=== PATIENT | female | born 1985 | race Caucasian/White ===

== ENCOUNTER 2024-02-10 20:31 | Emergency (ER) | payer MEDICAID, SELFPAY ==
--- NOTE | 2024-02-10 20:36 | PC.NURSE ---
Pt walked out during triage.
== END 2024-02-10 20:38 | disposition left against medical advice (07) ==
LOC: SERX 20:44
PROVIDERS: Emergency Provider Emergency Medicine
DX: Z53.21 Procedure and treatment not carried out due to patient leaving prior to being seen by health care provider (principal)

== ENCOUNTER 2024-03-05 15:43 | Emergency (ER) | payer MEDICAID, SELFPAY ==
--- NOTE | 2024-03-05 17:02 | PC.NURSE ---
NA X1 CALLED FOR PT IN LOBBY AND OUTSIDE
--- NOTE | 2024-03-05 17:41 | PC.NURSE ---
CALLED 3 TIMES, NO ANSWER; ELOPED.
== END 2024-03-05 17:41 | disposition left against medical advice (07) ==
LOC: SERX 15:55
PROVIDERS: Emergency Provider Emergency Medicine; PCP Family Medicine
DX: Z53.21 Procedure and treatment not carried out due to patient leaving prior to being seen by health care provider (principal)

== ENCOUNTER 2024-03-11 14:40 | Emergency (ER) | payer MEDICAID, SELFPAY ==
[2024-03-11 14:56] VITALS: PULSE 112; O2SAT 99; BMI 21.1
[2024-03-11 15:19] VITALS: BP 138/100; PULSE 101; RESP 16; TEMP 36.7; O2SAT 100; BMI 21.8
--- NOTE | 2024-03-11 15:20 | XR_ITS ---
Examination: PA lateral chest 2 views TECHNIQUE: Upright PA lateral chest 2 views Exam date and time: March 11, 2024 at 1612 hours Comparison March 05, 2024 INDICATIONS: History chest pain pneumonia FINDINGS: There remains mild obscuration detail midportion left hemidiaphragm This may represent scar formation versus mild residual pneumonia, clinical correlation advised Prominent lumbar dextroscoliosis Normal heart size IMPRESSION: There remains scar formation versus mild pneumonia left base, the appearance should be clinically correlated
--- NOTE | 2024-03-11 15:20 | EKG_ITS ---
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
--- NOTE | 2024-03-11 15:20 | PD.EDRME ---
Rapid Medical Screening Exam RME Arrival date/time: 03/11/24 14:40 38-year-old female presents emergency department complaints of rapid heartbeat patient reports last used methamphetamine 2 days ago Chief Complaint: Chest Pain Time Seen by Provider: 03/11/24 15:03
[2024-03-11 16:21] LABS: Basophils # (Auto) 0.1 Thou/mm3 (0.0-0.2); Basophils % (Auto) 1 % (0-2.5); Eosinophils # (Auto) 0.1 Thou/mm3 (0.0-0.5); Eosinophils % (Auto) 1 % (0-10); Hematocrit 41.5 % (36.0-46.0); Hemoglobin 14.9 g/dL (12.0-16.0); Immature Granulocytes % (Auto) 1 % (0-0); Immature Granulocytes Auto 0.07 Thou/mm3 (0.00-0.00); Lymphocytes # (Auto) 3.6 Thou/mm3 (1.0-4.8); Lymphocytes % (Auto) 30 % (10-50); Mean Corpuscular HGB Conc 35.9 g/dl (31.0-37.0); Mean Corpuscular Hemoglobin 30.8 pg (25.0-35.0); Mean Corpuscular Volume 86 fL (80-100); Monocytes # (Auto) 1.1 Thou/mm3 (0.0-0.8); Monocytes % (Auto) 9 % (0-12); Neutrophils % (Auto) 59 % (37-80); Nucleated Red Blood Cell % 0 /100 WBC (0); Platelet Count 331 Thou/mm3 (140-440); RDW Standard Deviation 38.5 fL (36.4-46.3); Red Blood Count 4.83 Miln/mm3 (4.00-5.20); White Blood Count 11.8 Thou/mm3 (3.6-11.0)
[2024-03-11 17:11] LABS: Alanine Aminotransferase 17 U/L (10-49); Albumin, Serum 4.7 gm/dL (3.5-5.0); Albumin/Globulin Ratio 1.6 (1.2-2.2); Alkaline Phosphatase 84 U/L (46-116); Anion Gap 5 (7-16); Aspartate Amino Transferase 23 U/L (0-34); BUN/Creatinine Ratio 6 Ratio (12-20); Bilirubin,Total 1.2 mg/dL (0.3-1.2); Blood Urea Nitrogen 5 mg/dL (9-23); Calcium 10.3 mg/dL (8.3-10.6); Calcium (Corrected) 10.3 mg/dL (8.5-10.1); Carbon Dioxide 27.3 mMol/L (20.0-31.0); Chloride 100 mMol/L (98-107); Creatinine (Component) 0.9 mg/dL (0.6-1.3); Estimated Creatinine Clearance 71.8 mL/min (>60); Glucose 103 mg/dL (74-106); Osmolality,Calculated 261 (275-295); Potassium 3.8 mMol/L (3.4-5.1); Sodium 132 mMol/L (136-145); Total Protein 7.7 gm/dL (5.7-8.2); Troponin I < 0.020 ng/mL (0.0-0.045); eGFR > 60 See Note
== END 2024-03-11 18:14 | disposition left against medical advice (07) ==
PROVIDERS: Nurse Practitioner Primary Care; Emergency Provider Emergency Medicine; PCP Family Medicine
DX: R07.9 Chest pain, unspecified (principal); R94.31 Abnormal electrocardiogram [ECG] [EKG]
CPT/HCPCS: 36415; 71046; 80053; 80307; 81025; 84484; 85025; 93005; 99281

== ENCOUNTER 2024-03-12 16:48 | Emergency (ER) | payer MEDICAID, SELFPAY ==
--- NOTE | 2024-03-12 16:52 | EKG_ITS ---
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
[2024-03-12 16:55] VITALS: BP 113/74; PULSE 90; RESP 16; TEMP 36.8; O2SAT 100; BMI 21.1
--- NOTE | 2024-03-12 17:05 | XR_ITS ---
Examination: PA lateral chest 2 views TECHNIQUE: Upright PA lateral chest 2 views Exam date and time: March 12, 2024 1712 hours INDICATIONS: Onset chest pain today FINDINGS: Normal heart size No pneumonia or pulmonary edema Pectus deformity IMPRESSION: No pneumonia or pulmonary edema
--- NOTE | 2024-03-12 17:05 | PD.EDRME ---
Rapid Medical Screening Exam RME Arrival date/time: 03/12/24 16:48 38-year-old female presents emergency department complains of chest pain patient evaluated yesterday for similar symptoms Chief Complaint: General Adult/Misc Complain Vital signs: Vital Signs Temperature 98.3 F 03/12/24 16:55 Pulse Rate 90 03/12/24 16:55 Respiratory Rate 16 03/12/24 16:55 Blood Pressure 113/74 03/12/24 16:55 Pulse Oximetry (%) 100 03/12/24 16:55 Oxygen Delivery Method Room Air 03/12/24 16:55
[2024-03-12 17:15] LABS: Basophils # (Auto) 0.1 Thou/mm3 (0.0-0.2); Basophils % (Auto) 1 % (0-2.5); Eosinophils # (Auto) 0.2 Thou/mm3 (0.0-0.5); Eosinophils % (Auto) 2 % (0-10); Hematocrit 39.7 % (36.0-46.0); Hemoglobin 13.8 g/dL (12.0-16.0); Immature Granulocytes % (Auto) 0 % (0-0); Immature Granulocytes Auto 0.03 Thou/mm3 (0.00-0.00); Lymphocytes # (Auto) 3.3 Thou/mm3 (1.0-4.8); Lymphocytes % (Auto) 37 % (10-50); Mean Corpuscular HGB Conc 34.8 g/dl (31.0-37.0); Mean Corpuscular Hemoglobin 30.7 pg (25.0-35.0); Mean Corpuscular Volume 88 fL (80-100); Monocytes # (Auto) 0.7 Thou/mm3 (0.0-0.8); Monocytes % (Auto) 8 % (0-12); Neutrophils # (Auto) 4.5 Thou/mm3 (1.8-7.7); Neutrophils % (Auto) 51 % (37-80); Nucleated Red Blood Cell % 0 /100 WBC (0); Platelet Count 292 Thou/mm3 (140-440); White Blood Count 8.8 Thou/mm3 (3.6-11.0)
[2024-03-12 17:35] LABS: Alanine Aminotransferase 23 U/L (10-49); Albumin, Serum 4.2 gm/dL (3.5-5.0); Albumin/Globulin Ratio 1.6 (1.2-2.2); Alkaline Phosphatase 72 U/L (46-116); Anion Gap 3 (7-16); Aspartate Amino Transferase 22 U/L (0-34); BUN/Creatinine Ratio 11 Ratio (12-20); Bilirubin,Total 0.5 mg/dL (0.3-1.2); Blood Urea Nitrogen 13 mg/dL (9-23); Calcium 9.3 mg/dL (8.3-10.6); Calcium (Corrected) 9.3 mg/dL (8.5-10.1); Carbon Dioxide 28.5 mMol/L (20.0-31.0); Chloride 105 mMol/L (98-107); Creatinine (Component) 1.2 mg/dL (0.6-1.3); Estimated Creatinine Clearance 56.1 mL/min (>60); Globulin 2.6 gm/dL (2.3-3.5); Glucose 97 mg/dL (74-106); Osmolality,Calculated 272 (275-295); Potassium 4.3 mMol/L (3.4-5.1); Sodium 136 mMol/L (136-145); Total Protein 6.8 gm/dL (5.7-8.2); Troponin I < 0.002 ng/mL (0.0-0.045); eGFR 59 See Note
--- NOTE | 2024-03-12 21:19 | PC.NURSE ---
called pt in er lobby and outside of er and no answer at this time.
--- NOTE | 2024-03-12 21:35 | PC.NURSE ---
NO ANSWER FOR VITALS
--- NOTE | 2024-03-12 21:50 | PC.NURSE ---
NO ANSWER FOR MAIN ED
== END 2024-03-12 21:50 | disposition left against medical advice (07) ==
PROVIDERS: Nurse Practitioner Primary Care; Emergency Provider Emergency Medicine; PCP Family Medicine
DX: R07.9 Chest pain, unspecified (principal); Z53.29 Procedure and treatment not carried out because of patient's decision for other reasons
CPT/HCPCS: 36415; 71046; 80053; 84484; 85025; 93005; 99281

== ENCOUNTER 2024-03-16 00:29 | Emergency (ER) | payer MEDICAID, SELFPAY ==
--- NOTE | 2024-03-16 00:46 | PC.NURSE ---
PT WALKED OUT OF AMBULANCE BAY WAS NOT SEEN BY PROVIDER.
--- NOTE | 2024-03-16 13:08 | PC.CC ---
Pt Elayne Garcia is a 38 yr old female to ED for voluntary crisis evaluation. Pt requesting to be put on mental health medications and to be placed in LPS facility. ASW met with pt in old triage in ED. ASW introduced self and role in pt care. Pt noted to be agreeable to meet with ASW at this time. Pt presents dressed appropriately for weather. Pt speaks in clear even tone, keeps direct eye contact is able to respond appropriately to all assessment questions at this time. Pt presents with normal affect, does not appear to be responding to internal/external stimuli. At this time pt is denying SI/HI, A/VH. Pt noted to be independent with ambulation. Pt reports coming to the ED, to request mental health medications and would like to be placed in LPS facility. Pt reports hx of schizophrenia, reporting being dx 10+ yrs ago. Pt states not currently being engaged in traditional MH services. Pt reports she has not accessed mental health services in a very long time. ASW assessed why pt feels she needs to be placed in LPS setting, pt reports it is because she is homeless. Pt reports she feels someone is after her. ASW assessed if pt feels safe, and if anyone has caused harm to pt. Pt denied both, feeling unsafe and that no one has caused her harm. Pt reports that up until 2 months ago she lived with her boyfriend. Pt reports that since the relationship has ended, she has been homeless. Pt reports the use of methamphetamine, reports last use a few days ago. Pt informed that case would be consulted and pt provided with outcome. Pt agreeable. 1132-Case staffed with LIGHTOUT EXAMINER, Nikki Willis. Pt to be cleared with resources to support pts desire to access traditional MH services. ASW attempted to follow up with pt, pt eloped from ED prior to being D/c. ED security and shirt cleaner informed to advise ASW if pt returned to ED.
== END 2024-03-16 00:48 | disposition left against medical advice (07) ==
LOC: SERX 00:55
PROVIDERS: Emergency Provider Emergency Medicine
DX: Z53.21 Procedure and treatment not carried out due to patient leaving prior to being seen by health care provider (principal)

== ENCOUNTER 2024-03-16 07:59 | Emergency (ER) | payer MEDICAID, SELFPAY ==
[2024-03-16 08:32] VITALS: BP 149/84; PULSE 100; RESP 19; TEMP 36.6; O2SAT 99; BMI 20.9
--- NOTE | 2024-03-16 08:36 | PD.EDRME ---
Rapid Medical Screening Exam RME Arrival date/time: 03/16/24 07:59 38-year-old female history of methamphetamine use, psychosis, anxiety depression here in the emergency department today requesting to speak to mental health vessel slag worker. Denies suicidal homicidal ideation. I have greeted and performed a focused initial assessment of this patient. Initial appropriate labs ordered at this time. A comprehensive ED assessment and evaluation of the patient and analysis of all test and completion of medical decision making process will be conducted by additional ED provider. Chief Complaint: General Adult/Misc Complain Time Seen by Provider: 03/16/24 08:26
[2024-03-16 09:15] LABS: Alcohol, Blood Medical < 10.0 mg/dL (0-10.0)
[2024-03-16 09:37] LABS: HCG Qualitative,Urine Negative
[2024-03-16 09:49] LABS: Amphetamine/Methamp Scrn,U Positive (Negative); Barbiturate Screen,Urine Negative (Negative); Benzodiazepines Screen,Urine Negative (Negative); Benzoylecgonine Screen, Ur Negative (Negative); Fentanyl Screen,Urine Negative (Negative); Opiate Screen,Urine Negative (Negative); THC Screen,Urine Negative (Negative)
--- NOTE | 2024-03-16 11:45 | PC.NURSE ---
PT AL FROM DIRECTOR OF SAFETY AND SECURITY, PT CLEARED FOR DISCHARGE
--- NOTE | 2024-03-16 11:57 | PC.NURSE ---
CALLED PT FROM LOBBY AND NO ANSWER. SECURITY STATES SHE WALKED AWAY.
== END 2024-03-16 11:59 | disposition left against medical advice (07) ==
LOC: SERX 08:44
PROVIDERS: Nurse Practitioner Primary Care; Emergency Provider Emergency Medicine; PCP Family Medicine
DX: Z00.8 Encounter for other general examination (principal); Z53.29 Procedure and treatment not carried out because of patient's decision for other reasons
CPT/HCPCS: 36415; 80307; 80320; 81025; 99281; G0480

== ENCOUNTER 2024-03-18 03:43 | Emergency (ER) | payer MEDICAID, SELFPAY ==
[2024-03-18 03:50] VITALS: PULSE 88; RESP 20; BMI 21.1
[2024-03-18 03:53] VITALS: BP 116/70; PULSE 77; RESP 19; TEMP 36.6; O2SAT 98
--- NOTE | 2024-03-18 04:10 | PD.EDANX ---
ED Anxiety RME/HPI General Chief Complaint: Anxiety Stated Complaint: ANXIETY Time Seen by Provider: 03/18/24 04:10 Source: patient Arrival date/time: 03/18/24 03:43 38-year-old female with past medical history recreational drug abuse presents emergency department reporting she has been losing weight and does not have appetite as she normally does. Patient denies any fever, chills, cough, shortness of breath, chest pain, nausea vomiting, diarrhea, or any other associated symptoms. Mode of arrival: ambulatory Limitations: no limitations Related Data Home Medications ?Medication ?Instructions ?Recorded ?Confirmed albuterol sulfate 90 mcg/actuation 2 puff inhalation Q6H PRN 08/20/18 aerosol inhaler shortness of breath or wheezing fluoxetine 40 mg capsule 40 mg PO QDAY 08/20/18 risperidone 2 mg tablet 2 mg PO BID 08/20/18 trazodone 50 mg tablet 50 mg PO QHS PRN 08/20/18 Previous Rx's ?Medication ?Instructions ?Recorded risperidone 1 mg tablet (Risperdal) 1 mg PO QDAY #14 tabs 07/25/23 fluoxetine 40 mg capsule 40 mg PO QAM #7 caps 10/19/23 risperidone 1 mg tablet (Risperdal) 1 mg PO QDAY #7 tabs 10/19/23 trazodone 50 mg tablet 50 mg PO QDAY #7 tabs 10/19/23 fluticasone propionate 50 1 spray intranasal Q12H PRN nasal 11/19/23 mcg/actuation nasal congestion #16 grams spray,suspension (Flonase Allergy Relief) prednisone 50 mg tablet 50 mg PO QDAY #5 tabs 03/02/24 azithromycin 250 mg tablet See Rx Instructions PO .COMPLEX #6 03/05/24 tabs Allergies Allergy/AdvReac Type Severity Reaction Status Date / Time No Known Allergies Allergy Verified 03/12/24 16:52 Review of Systems Review of Systems Systems Reviewed: All systems reviewed, normal except as documented Constitutional Constitutional: Reports system reviewed and no additional complaints, except as documented, Denies body ache(s), Denies chills, Denies fever(s) and Reports poor appetite Eyes Eyes: Reports system reviewed and no additional complaints, except as documented and Denies change in vision ENT Ears, Nose, Mouth, and Throat: Reports system reviewed and no additional complaints, except as documented, Denies disequilibrium, Denies dizziness, Denies sore throat and Denies vertigo Cardiovascular Cardiovascular: Reports system reviewed and no additional complaints, except as documented, Denies chest pain and Denies dyspnea Respiratory Respiratory: Reports system reviewed and no additional complaints, except as documented, Denies chest congestion, Denies cough and Denies dyspnea Gastrointestinal Gastrointestinal: Reports system reviewed and no additional complaints, except as documented, Denies abdominal pain, Denies nausea and Denies vomiting Musculoskeletal Musculoskeletal: Reports system reviewed and no additional complaints, except as documented, Denies abnormal gait and Denies arthralgias Integumentary/Breasts Skin/Breast: Reports system reviewed and no additional complaints, except as documented, Denies erythema, Denies rash and Denies wounds Neurologic Neurologic: Reports system reviewed and no additional complaints, except as documented, Denies abnormal gait, Denies disequilibrium, Denies dizziness and Denies vertigo Past Medical History Past Medical History CARDIAC: Negative Congestive Heart Failure RESPIRATORY: Negative Chronic Obstructive Pulmonary Disease (COPD) GENITOURINARY: Negative Renal Disease ENDOCRINE: Negative Diabetes Mellitus Type 1 or Diabetes Mellitus Type 2 PSYCHO/SOCIAL: Positive Psychiatric Problems, Schizophrenia and Depression Social History SMOKING STATUS: Current every day smoker ED Exam General Limitations: Present no limitations General appearance: Present alert and in no apparent distress Head Head exam: Present atraumatic Eye Eye exam: Present normal appearance, PERRL and EOMI ENT ENT exam: Present normal exam, normal oropharynx and mucous membranes moist Neck Neck exam: Present normal inspection, full ROM and trachea midline Chest Chest inspection: Present normal inspection and symmetric chest wall rise Respiratory Respiratory exam: Present normal lung sounds bilaterally Cardiovascular Cardiovascular exam: Present regular rate, normal rhythm and normal heart sounds Abdominal Exam Abdominal exam: Present soft and normal bowel sounds Extremities Exam Extremities exam: Present normal inspection and full ROM Back Exam Back exam: Present normal inspection and full ROM Neurological Exam Neurological exam: Present alert, oriented X3 and CN II-XII intact Psychiatric Psychiatric exam: Present normal affect and anxious; Absent homicidal ideation or suicidal ideation Skin Skin exam: Present warm, dry, intact and normal color Course Quality Measures none Vital Signs Vital signs: Vital Signs Temperature 98 F 03/18/24 03:53 Pulse Rate 77 03/18/24 03:53 Respiratory Rate 19 03/18/24 03:53 Blood Pressure 116/70 03/18/24 03:53 Pulse Oximetry (%) 98 03/18/24 03:53 Oxygen Delivery Method Room Air 03/18/24 03:53 98% room air within normal limits Anxiety MDM Narrative MDM Narrative: 38-year-old female with past medical history recreational drug abuse presents emergency department reporting she has been losing weight and does not have appetite as she normally does. Patient denies any fever, chills, cough, shortness of breath, chest pain, nausea vomiting, diarrhea, or any other associated symptoms. Patient appears nontoxic and hemodynamically stable. Patient GCS of 15 with steady gait and answering questions appropriately. Family member at bedside. Patient reports daily use of methamphetamines. Patient reports attempting to quit. Patient given pamphlet with list of resources for mental health, shelters, and transportation. Patient's clothing adequate for weather and given meal before discharge Patient discharged to follow-up with primary care provider in 24 to 48 hours and return to emergency department for any worsening symptoms or as needed. Patient data External records reviewed:: [facility] previous records Clinical information provided by:: patient Social determinants that could affect healthcare access:: substance use Patient has the following chronic illnesses:: See chart How is presenting disease/condition affected by chronic disease/condition?: exacerbated by Evaluation data The following diagnostics were reviewed and interpreted by me:: other (specify) (N/A) Lab and/or radiology exams considered but not ordered:: N/A Interpretation Summary: N/A Medications / Prescriptions Medications or Prescriptions considered but not ordered:: N/A Medication administrations:: N/A Consultations Consultation(s) initiated? (list below): No Diagnosis Differential diagnosis anxiety: panic disorder, acute anxiety and other (Methamphetamine use) Most likely diagnosis given after review of the tests above:: Methamphetamine use History of recreational drug abuse Admission Indicated Admission indicated?: not indicated Admission Request Was there a request for admission?: No Disposition Plan Disposition Plan: Discharge Discharge Attestation Discharge Attestation: The patient and all family members were given an opportunity to ask questions and understood the discharge instructions. Discharge instructions specifically effects, indications for sooner follow up or return to the emergency department, and the expected course of current diagnosis. Patient condition: Stable Discharge Plan Plan Patient Disposition: HOME (Self Care) Disposition Comment: Stable Prescriptions/Referrals Prescriptions/Med Rec: No Action albuterol sulfate 90 mcg/actuation HFA aerosol inhaler 2 puff INH Q6H PRN (Reason: shortness of breath or wheezing) fluoxetine 40 mg capsule 40 mg PO QDAY risperidone 2 mg tablet 2 mg PO BID trazodone 50 mg tablet 50 mg PO QHS PRN risperidone [Risperdal] 1 mg tablet 1 mg PO QDAY Qty: 14 0RF fluoxetine 40 mg capsule 40 mg PO QAM Qty: 7 0RF trazodone 50 mg tablet 50 mg PO QDAY Qty: 7 0RF risperidone [Risperdal] 1 mg tablet 1 mg PO QDAY Qty: 7 0RF prednisone 50 mg tablet 50 mg PO QDAY Qty: 5 0RF azithromycin 250 mg tablet See Rx Instructions PO .COMPLEX Qty: 6 0RF Rx Instructions: For 250 mg dose pack: take 500 mg today (day 1), then 250 mg for 4 days (days 2-5) fluticasone propionate [Flonase Allergy Relief] 50 mcg/actuation spray,suspension 1 spray intranasal Q12H PRN (Reason: nasal congestion) Qty: 16 0RF Rx Instructions: administer into each nostril Problem List Clinical Impression: History of abuse of recreational drug, Methamphetamine dependence Patient/Caregiver Discharge Instructions Education Materials: Addiction Ask These Questions, Recovering from Addiction, ED Drug Abuse Additional Instructions: Stop using methamphetamine and use resources that were provided on the pamphlet. Follow-up with primary care provider in 24 to 48 hours. Return to the emergency department for any worsening symptoms or as needed. Print Language: Maori Stand Alone Forms: Elenita Award Info., Patient Portal Info Letter PA/ENA Supervising Physician PA/ENA Supervising Physician: Dr. Chowdhury
== END 2024-03-18 04:28 | disposition home or self-care (01) ==
PROVIDERS: Emergency Provider Emergency Medicine; PCP Family Medicine
DX: F15.20 Other stimulant dependence, uncomplicated (principal)
CPT/HCPCS: 99283

== ENCOUNTER 2024-03-18 08:45 | Emergency (ER) | payer MEDICAID, SELFPAY ==
[2024-03-18 08:45] VITALS: BMI 21.9
[2024-03-18 08:53] VITALS: BP 136/82; PULSE 96; RESP 16; TEMP 36.9; O2SAT 98; BMI 20.3
--- NOTE | 2024-03-18 09:08 | PC.NURSE ---
0855 Unable to located where the patient went. Provider Rony came to talk with patient but patient was no longer in the room. Will attempt to call the patient 2 more times.
--- NOTE | 2024-03-18 09:11 | PC.NURSE ---
0910 Patient called from the front of the ER and the lobby for a second time, no answer x2.
--- NOTE | 2024-03-18 09:35 | PC.NURSE ---
Patent no where to be found in the ER, patient eloped.
--- NOTE | 2024-03-18 09:35 | PC.NURSE ---
0935 Patient called from the front of the ER and the lobby for a third time with no response. Security stated they saw the patient leave walking towards the MRI building.
== END 2024-03-18 09:35 | disposition left against medical advice (07) ==
PROVIDERS: Emergency Provider Emergency Medicine
DX: Z53.21 Procedure and treatment not carried out due to patient leaving prior to being seen by health care provider (principal)
CPT/HCPCS: 99281

== ENCOUNTER 2024-03-22 00:08 | Emergency (ER) | payer MEDICAID, SELFPAY ==
[2024-03-22 00:09] VITALS: BMI 23.6
[2024-03-22 00:14] VITALS: BP 150/77; PULSE 114; RESP 19; TEMP 36.9; O2SAT 96
--- NOTE | 2024-03-22 00:26 | PD.EDRME ---
Rapid Medical Screening Exam RME Arrival date/time: 03/22/24 00:08 38F with history of psych/drug presents to ED wanting to talk to crisis. Patient denies SI/HI. Chief Complaint: Psychiatric Symptoms Vital signs: Vital Signs Temperature 98.4 F 03/22/24 00:14 Pulse Rate 114 H 03/22/24 00:14 Respiratory Rate 19 03/22/24 00:14 Blood Pressure 150/77 H 03/22/24 00:14 Pulse Oximetry (%) 96 03/22/24 00:14 Oxygen Delivery Method Room Air 03/22/24 00:14
--- NOTE | 2024-03-22 00:51 | PD.EDPSYCH ---
ED Psych RME/HPI General Chief Complaint: Psychiatric Symptoms Stated Complaint: WANTS TO TALK TO MH Time Seen by Provider: 03/22/24 00:33 Arrival date/time: 03/22/24 00:08 RME / HPI RME / HPI Narrative: 03/22/24 00:08 38F with history of psych/drug presents to ED wanting to talk to crisis. Patient denies SI/HI. ------ This section includes all my notes and documentations, including HPI, PE, and ED course. Melvin Carbajal MD HPI: 38yo female with a history of schizophrenia, methamphetamine abuse presents to the ED requesting to speak with mental health. Patient states she has not had a place to stay for the last 6 months. She states she used to be on rispiradone and haldol, but has not taken her medications in months . She denies any SI, HI, or hallucinations. No other complaints reported. ROS: Respiratory: negative except as documented in HPI. Gastrointestinal: negative except as documented in HPI. Genitourinary: negative except as documented in HPI. Musculoskeletal: negative except as documented in HPI. Skin: negative except as documented in HPI. Neurological: negative except as documented in HPI. Physical Exam: General: Alert and oriented. No acute distress. Eyes: Conjunctivae and lids clear. ENT: No nasal congestion. Neck: Supple. Lungs: No respiratory distress. Skin: Warm and dry. Neuro: Alert and oriented X 3. I ordered diagnostic tests. I was told the patient eloped. Related Data Home Medications ?Medication ?Instructions ?Recorded ?Confirmed albuterol sulfate 90 mcg/actuation 2 puff inhalation Q6H PRN 08/20/18 aerosol inhaler shortness of breath or wheezing fluoxetine 40 mg capsule 40 mg PO QDAY 08/20/18 risperidone 2 mg tablet 2 mg PO BID 08/20/18 trazodone 50 mg tablet 50 mg PO QHS PRN 08/20/18 Previous Rx's ?Medication ?Instructions ?Recorded risperidone 1 mg tablet (Risperdal) 1 mg PO QDAY #14 tabs 07/25/23 fluoxetine 40 mg capsule 40 mg PO QAM #7 caps 10/19/23 risperidone 1 mg tablet (Risperdal) 1 mg PO QDAY #7 tabs 10/19/23 trazodone 50 mg tablet 50 mg PO QDAY #7 tabs 10/19/23 fluticasone propionate 50 1 spray intranasal Q12H PRN nasal 11/19/23 mcg/actuation nasal congestion #16 grams spray,suspension (Flonase Allergy Relief) prednisone 50 mg tablet 50 mg PO QDAY #5 tabs 03/02/24 azithromycin 250 mg tablet See Rx Instructions PO .COMPLEX #6 03/05/24 tabs Allergies Allergy/AdvReac Type Severity Reaction Status Date / Time No Known Allergies Allergy Verified 03/18/24 08:47 Review of Systems Review of Systems Systems Reviewed: All systems reviewed, normal except as documented Past Medical History Past Medical History CARDIAC: Negative Congestive Heart Failure RESPIRATORY: Negative Chronic Obstructive Pulmonary Disease (COPD) GENITOURINARY: Negative Renal Disease ENDOCRINE: Negative Diabetes Mellitus Type 1 or Diabetes Mellitus Type 2 PSYCHO/SOCIAL: Positive Psychiatric Problems, Schizophrenia and Depression Social History SMOKING STATUS: Current every day smoker ED Exam Narrative Physical exam: As noted in HPI. Course Quality Measures none Orders Category Date Time Status Acetaminophen Stat Lab 03/22/24 00:53 Ordered Alcohol, Blood Medical Stat Lab 03/22/24 00:53 Ordered CBC Stat Lab 03/22/24 00:54 Ordered CMP [Comprehensive Metabolic Panel] Stat Lab 03/22/24 00:53 Ordered Drug Screen,Urine Stat Lab 03/22/24 00:54 Ordered HCG Qualitative,Urine Stat Lab 03/22/24 00:54 Ordered Magnesium Stat Lab 03/22/24 00:53 Ordered Salicylate Stat Lab 03/22/24 00:53 Ordered UA [Urinalysis] Stat Lab 03/22/24 00:54 Ordered Vital Signs Vital signs: Vital Signs Temperature 98.4 F 03/22/24 00:14 Pulse Rate 114 H 03/22/24 00:14 Respiratory Rate 19 03/22/24 00:14 Blood Pressure 150/77 H 03/22/24 00:14 Pulse Oximetry (%) 96 03/22/24 00:14 Oxygen Delivery Method Room Air 03/22/24 00:14 Psych Patient data External records reviewed:: [facility] previous records (Per chart review, patient was seen here on 03/18/24 due to not eating.) Clinical information provided by:: patient Social determinants that could affect healthcare access:: mental health Patient has the following chronic illnesses:: schizophrenia, methamphetamine abuse How is presenting disease/condition affected by chronic disease/condition?: caused by Evaluation data The following diagnostics were reviewed and interpreted by me:: other (specify) (none) Lab and/or radiology exams considered but not ordered:: none Interpretation Summary: Labs were ordered, but the patient eloped prior to labs being drawn. Medications / Prescriptions Medications or Prescriptions considered but not ordered:: none Medication administrations:: none Consultations Consultation(s) initiated? (list below): No Diagnosis Psych Differential Diagnosis: acute psychosis, chronic schizophrenia and drug-induced psychotic disorder Most likely diagnosis given after review of the tests above:: see below Admission Indicated Admission indicated?: not indicated Admission Request Was there a request for admission?: No Disposition Plan Disposition Plan: other (specify) (Patient eloped.) Discharge Plan Plan Patient Disposition: Elopement Prescriptions/Referrals Prescriptions/Med Rec: No Action albuterol sulfate 90 mcg/actuation HFA aerosol inhaler 2 puff INH Q6H PRN (Reason: shortness of breath or wheezing) fluoxetine 40 mg capsule 40 mg PO QDAY risperidone 2 mg tablet 2 mg PO BID trazodone 50 mg tablet 50 mg PO QHS PRN risperidone [Risperdal] 1 mg tablet 1 mg PO QDAY Qty: 14 0RF fluoxetine 40 mg capsule 40 mg PO QAM Qty: 7 0RF trazodone 50 mg tablet 50 mg PO QDAY Qty: 7 0RF risperidone [Risperdal] 1 mg tablet 1 mg PO QDAY Qty: 7 0RF prednisone 50 mg tablet 50 mg PO QDAY Qty: 5 0RF azithromycin 250 mg tablet See Rx Instructions PO .COMPLEX Qty: 6 0RF Rx Instructions: For 250 mg dose pack: take 500 mg today (day 1), then 250 mg for 4 days (days 2-5) fluticasone propionate [Flonase Allergy Relief] 50 mcg/actuation spray,suspension 1 spray intranasal Q12H PRN (Reason: nasal congestion) Qty: 16 0RF Rx Instructions: administer into each nostril Problem List Clinical Impression: Homeless Patient/Caregiver Discharge Instructions Print Language: Bulgarian
--- NOTE | 2024-03-22 01:02 | PC.NURSE ---
PT DENIES SI/HI, STATES THAT SHE FEELS LIKE SHE IS DYING. PT STATES SHE IS HOMELESS. PT ON PREVIOUS VISIT WAS GIVEN MULTIPLE RESOURCES FOR GROUP HOME BY THIS RN AND DAVID. PT STATES SHE DID NOT FOLLOW UP WITH ANYTHING BECAUSE SHE DOESN'T WANT TO LIVE IN A GROUP HOME
--- NOTE | 2024-03-22 01:40 | PC.NURSE ---
NO ANSWER FOR LABS
--- NOTE | 2024-03-22 01:55 | PC.NURSE ---
NO ANSWER FOR LABS
--- NOTE | 2024-03-22 02:30 | PC.NURSE ---
NO ANSWER FOR LABS
== END 2024-03-22 02:45 | disposition left against medical advice (07) ==
LOC: SERX 02:38
PROVIDERS: Emergency Provider Emergency Medicine
DX: Z00.8 Encounter for other general examination (principal); F20.9 Schizophrenia, unspecified; F32.A Depression, unspecified; Z59.00 Homelessness unspecified; Z53.29 Procedure and treatment not carried out because of patient's decision for other reasons
CPT/HCPCS: 80053; 80307; 80320; 80329; 81001; 81025; 83735; 85025; 99281; G0480

== ENCOUNTER 2024-05-28 20:16 | Emergency (ER) | payer MEDICAID, SELFPAY ==
[2024-05-28 20:18] VITALS: BP 152/96; PULSE 104; RESP 19; TEMP 36.8; O2SAT 99
[2024-05-28 20:20] VITALS: BMI 19.8
--- NOTE | 2024-05-28 20:29 | PD.EDMEDCL ---
ED Medical Clearance RME/HPI General Chief complaint: Medical Clearance Stated complaint: MEDICAL CLEARANCE Time Seen by Provider: 05/28/24 20:26 Arrival date/time: 05/28/24 20:16 RME / HPI RME / HPI Narrative: 38-year-old female patient was brought in by law enforcement for medical clearance. Apparently patient verbalized that she is . Currently patient is not having any complaints she cannot remember when was her last menstruation. Denies any abdominal pain denies any vaginal bleeding or spotting. Related Information Home Medications ?Medication ?Instructions ?Recorded ?Confirmed albuterol sulfate 90 mcg/actuation 2 puff inhalation Q6H PRN 08/20/18 aerosol inhaler shortness of breath or wheezing fluoxetine 40 mg capsule 40 mg PO QDAY 08/20/18 risperidone 2 mg tablet 2 mg PO BID 08/20/18 trazodone 50 mg tablet 50 mg PO QHS PRN 08/20/18 Previous Rx's ?Medication ?Instructions ?Recorded risperidone 1 mg tablet (Risperdal) 1 mg PO QDAY #14 tabs 07/25/23 fluoxetine 40 mg capsule 40 mg PO QAM #7 caps 10/19/23 risperidone 1 mg tablet (Risperdal) 1 mg PO QDAY #7 tabs 10/19/23 trazodone 50 mg tablet 50 mg PO QDAY #7 tabs 10/19/23 fluticasone propionate 50 1 spray intranasal Q12H PRN nasal 11/19/23 mcg/actuation nasal congestion #16 grams spray,suspension (Flonase Allergy Relief) prednisone 50 mg tablet 50 mg PO QDAY #5 tabs 03/02/24 azithromycin 250 mg tablet See Rx Instructions PO .COMPLEX #6 03/05/24 tabs Allergies Allergy/AdvReac Type Severity Reaction Status Date / Time No Known Allergies Allergy Verified 03/18/24 08:47 Review of Systems Review of Systems Narrative Review of Systems: Review of system reviewed and within normal limits except mentioned in HPI ED Exam Narrative Physical exam: VITAL SIGNS: Reviewed. GENERAL APPEARANCE: Alert and interactive, follows commands, no acute distress, HEAD AND FACE: Non-traumatic. ENT: PERRL, pink conjunctivitis, eyelid no trauma, Mucous membrane moist. NECK: Supple, nontender, no nuchal rigidity. CHEST: No tenderness, no crepitus, no paradoxical movement, no retractions. LUNGS: Clear, well ventilated, symmetric, no rales, no wheezing, no ronchi, no stridor, good breath sounds bilaterally. HEART: Regular rate, regular rhythm, no murmur, no gallops. ABDOMEN: Soft, positive bowel sounds, nondistended, no guarding, nontender, no rebound, no masses, RECTAL: Deferred. GENITAL: Deferred. NEUROLOGICAL: Gross motor function intact sensory function intact, Appropriate for age. MUSCULOSKELETAL: low back nontender, full range of motion. EXTREMITIES: Nontender, full range of motion. SKIN: Color pink, dry, no rash, no lacerations, no abrasions, no contusions. LYMPHATICS: Deferred. Course Quality Measures none Orders Category Date Time Status HCG Qualitative,Urine Stat Lab 05/28/24 20:36 Completed Vital Signs Vital signs: Vital Signs Temperature 98.2 F 05/28/24 20:18 Pulse Rate 104 H 05/28/24 20:18 Respiratory Rate 19 05/28/24 20:18 Blood Pressure 152/96 H 05/28/24 20:18 Pulse Oximetry (%) 99 05/28/24 20:18 Oxygen Delivery Method Room Air 05/28/24 20:18 Medical Clearance MDM Narrative MDM Narrative:: Patient's is medically cleared for incarceration. Patient is not . Patient data External records reviewed:: None Clinical information provided by:: none Social determinants that could affect healthcare access:: none Patient has the following chronic illnesses:: None How is presenting disease/condition affected by chronic disease/condition?: no chronic disease Evaluation data The following diagnostics were reviewed and interpreted by me:: lab results Lab and/or radiology exams considered but not ordered:: None Interpretation Summary: hCG negative Medications / Prescriptions Medications or Prescriptions considered but not ordered:: None Medication administrations:: None Consultations Consultation(s) initiated? (list below): No Diagnosis Medical Clearance Differential Diagnosis: other (Rule out ) Most likely diagnosis given after review of the tests above:: Medical clearance for incarceration Admission Indicated Admission indicated?: not indicated Admission Request Was there a request for admission?: No Disposition Plan Disposition Plan: Discharge Discharge Attestation Discharge Attestation: Patient condition: Stable Discharge Plan Plan Patient Disposition: HOME (Self Care) Disposition Comment: Stable Prescriptions/Referrals Prescriptions/Med Rec: No Action albuterol sulfate 90 mcg/actuation HFA aerosol inhaler 2 puff INH Q6H PRN (Reason: shortness of breath or wheezing) fluoxetine 40 mg capsule 40 mg PO QDAY risperidone 2 mg tablet 2 mg PO BID trazodone 50 mg tablet 50 mg PO QHS PRN risperidone [Risperdal] 1 mg tablet 1 mg PO QDAY Qty: 14 0RF fluoxetine 40 mg capsule 40 mg PO QAM Qty: 7 0RF trazodone 50 mg tablet 50 mg PO QDAY Qty: 7 0RF risperidone [Risperdal] 1 mg tablet 1 mg PO QDAY Qty: 7 0RF prednisone 50 mg tablet 50 mg PO QDAY Qty: 5 0RF azithromycin 250 mg tablet See Rx Instructions PO .COMPLEX Qty: 6 0RF Rx Instructions: For 250 mg dose pack: take 500 mg today (day 1), then 250 mg for 4 days (days 2-5) fluticasone propionate [Flonase Allergy Relief] 50 mcg/actuation spray,suspension 1 spray intranasal Q12H PRN (Reason: nasal congestion) Qty: 16 0RF Rx Instructions: administer into each nostril Problem List Clinical Impression: Medical clearance for incarceration Patient/Caregiver Discharge Instructions Discharge Activity: activity as tolerated Education Materials: Reducing Your Health Risks ... Additional Instructions: Thank you for the opportunity for serving you today. You are stable for discharged . You are advised to: Follow-up with your PCP in 1 to 2 days once you get out of skilled nursing Print Language: German Stand Alone Forms: Elenita Award Info., Patient Portal Info Letter
[2024-05-28 21:18] LABS: HCG Qualitative,Urine Negative
== END 2024-05-28 21:28 | disposition home or self-care (01) ==
LOC: SERX 23:08
PROVIDERS: Nurse Practitioner Family; Emergency Provider Emergency Medicine
DX: Z02.89 Encounter for other administrative examinations (principal)
CPT/HCPCS: 81025; 99283

== ENCOUNTER 2024-08-13 09:57 | Emergency (ER) | payer MEDICAID, SELFPAY ==
[2024-08-13 11:00] VITALS: PULSE 98; O2SAT 98; BMI 18.1
[2024-08-13 13:01] LABS: HCG Qualitative,Urine Negative
--- NOTE | 2024-08-13 13:19 | PD.EDPSYCH ---
ED Psych RME/HPI General Chief Complaint: Psychiatric Symptoms Stated Complaint: SREEDHAR WINSTON Time Seen by Provider: 08/13/24 10:28 Arrival date/time: 08/13/24 09:57 RME / HPI RME / HPI Narrative: Dr. Galeano?s Main ED Evaluation: 38 y/o female with Hx of Hypertension, Schizophrenia and Depression presents to ED BIBA c/o methamphetamine and alcohol intoxication x 2 days. Patient was being held in care home for intoxication and has not taken her medication in 2 days. Per medics report, patient was set to be released today however due to inability to safety plan was placed on a 5150 hold. Patient denies any SI or HI. No other concerns or complaints expressed at this time. Related Data Home Medications ?Medication ?Instructions ?Recorded ?Confirmed albuterol sulfate 90 mcg/actuation 2 puff inhalation Q6H PRN 08/20/18 aerosol inhaler shortness of breath or wheezing fluoxetine 40 mg capsule 40 mg PO QDAY 08/20/18 risperidone 2 mg tablet 2 mg PO BID 08/20/18 trazodone 50 mg tablet 50 mg PO QHS PRN 08/20/18 Previous Rx's ?Medication ?Instructions ?Recorded risperidone 1 mg tablet (Risperdal) 1 mg PO QDAY #14 tabs 07/25/23 fluoxetine 40 mg capsule 40 mg PO QAM #7 caps 10/19/23 risperidone 1 mg tablet (Risperdal) 1 mg PO QDAY #7 tabs 10/19/23 trazodone 50 mg tablet 50 mg PO QDAY #7 tabs 10/19/23 fluticasone propionate 50 1 spray intranasal Q12H PRN nasal 11/19/23 mcg/actuation nasal congestion #16 grams spray,suspension (Flonase Allergy Relief) prednisone 50 mg tablet 50 mg PO QDAY #5 tabs 03/02/24 azithromycin 250 mg tablet See Rx Instructions PO .COMPLEX #6 03/05/24 tabs Allergies Allergy/AdvReac Type Severity Reaction Status Date / Time No Known Allergies Allergy Verified 03/18/24 08:47 Review of Systems Review of Systems Systems Reviewed: All systems reviewed, normal except as documented Narrative Review of Systems: Gen: No fever, no chills, no weight loss EYES: No discharge, no visual changes, no pain HEENT: No ear pain, no congestion, no sore throat PULM: No shortness of breath, no cough, no congestion CV: No chest pain, no dyspnea on exertion, no palpitations GI: No nausea, no vomiting, no diarrhea, no pain, no constipation : No frequency, no urgency, no dysuria Musc/skel: No joint pain, no back pain Skin: No rash Psyc: No hallucinations, no depression, No SI/No HI Heme/Lymph: No easy bleeding or bruising tendencies Neuro: No weakness, no headache Past Medical History Past Medical History CARDIAC: Positive Hypertension PSYCHO/SOCIAL: Positive Psychiatric Problems, Schizophrenia and Depression Social History SMOKING STATUS: Current some day smoker ED Exam Narrative Physical exam: GENERAL APPEARANCE: AxOx4, generally well-appearing, no acute distress. HEENT: NC, AT. MMM. EOMI, clear conjunctiva, oropharynx clear. NECK: Supple without lymphadenopathy. No stiffness or restricted ROM. HEART: Normal rate and regular rhythm, normal S1/S1, no m/r/g LUNGS: CTAB, moving air well. No crackles or wheezes are heard. ABDOMEN: Soft, nontender, nondistended with good bowel sounds heard. BACK: No midline C/T/L spine pain or deformity, No CVAT, no obvious deformity. EXTREMITIES: Without cyanosis, clubbing or edema. MUSCULOSKELETAL: FROM of all major joints, no chest tenderness NEUROLOGICAL: Grossly nonfocal. Alert and oriented, moving all 4 extremities. CN not formally tested but appear grossly intact. Observed to ambulate with normal gait. Skin: Warm and dry without any rash. PSYCH: No SI/HI, no hallucinations Course Course Course Narrative: 1800: Patient signed out to Dr. Carbajal pending LPS facility placement. Quality Measures none Orders Category Date Time Status 2 HR Behavioral Restraints Q15M Care 08/13/24 23:59 Completed Saline [Insert IV] NOW Care 08/13/24 22:52 Active Diet Regular Diet 08/13/24 Lunch Active Acetaminophen Stat Lab 08/13/24 23:10 Completed Alcohol, Urine Stat Lab 08/13/24 12:39 Completed CBC Stat Lab 08/13/24 23:10 Completed Comprehensive Metabolic Panel Stat Lab 08/13/24 23:10 Completed Drug Screen,Urine Stat Lab 08/13/24 12:39 Completed Free T4 (Free Thyroxine) Stat Lab 08/13/24 23:10 Completed HCG Qualitative,Urine Stat Lab 08/13/24 12:39 Completed Magnesium Stat Lab 08/13/24 23:10 Completed Salicylate Stat Lab 08/13/24 23:10 Completed TSH [Thyroid Stimulating Hormone] Stat Lab 08/13/24 23:10 Completed Diazepam [Valium] Med 08/13/24 14:48 Discontinued 10 mg PO X1 ONE DiphenhydrAMINE INJ [Benadryl Inj] Med 08/13/24 22:55 Discontinued 50 mg IV X1 STA Haloperidol Lactate [Haldol Inj] Med 08/13/24 22:55 Discontinued 5 mg IV X1 ONE LORazepam [Ativan Inj] Med 08/13/24 22:55 Discontinued 1 mg IVP X1 ONE LORazepam [Ativan Inj] Med 08/13/24 13:27 Discontinued 2 mg .ROUTE .STK-MED ONE LORazepam [Ativan Inj] Med 08/13/24 13:16 Discontinued 2 mg IM X1 ONE Vital Signs Vital signs: Vital Signs Temperature 98.6 F 08/13/24 16:20 Pulse Rate 93 08/13/24 16:20 Respiratory Rate 16 08/13/24 16:20 Blood Pressure 98/61 08/13/24 16:20 Pulse Oximetry (%) 99 08/13/24 16:20 Oxygen Delivery Method Room Air 08/13/24 16:20 Pulse ox is 99% on room air which is adequate. Psych MDM Narrative MDM Narrative:: Scribe Attestation: Leatha Almaguer am scribing for and in the presence of Dr. Galeano. Provider Notation: Although this document has been carefully reviewed, there may still be some phonetic and other typographical errors. These errors are purely grammatical due to imperfections in the software program and should not be construed in any way to compromise the substance of the patient's medical care during this visit. Patient is medically cleared for mental health evaluation. Patient data External records reviewed:: [facility] previous records (Reviewed prior ED records. Patient was seen on 05/28/24 for Medical clearance for incarceration.) and EMS form Clinical information provided by:: patient and EMS Social determinants that could affect healthcare access:: mental health Patient has the following chronic illnesses:: Hypertension, Schizophrenia and Depression How is presenting disease/condition affected by chronic disease/condition?: exacerbated by Evaluation data The following diagnostics were reviewed and interpreted by me:: lab results Lab and/or radiology exams considered but not ordered:: None Interpretation Summary: Refer to MDM narrative. Medications / Prescriptions Medications or Prescriptions considered but not ordered:: None Medication administrations:: Medication Administration History Discontinued Medications Diazepam (Diazepam 5 Mg Tablet) 10 mg PO X1 ONE Stop: 08/13/24 14:49 Last Admin: 08/13/24 23:41 Dose: Not Given Documented By: ABEBE Non-Admin Reason: Patient Refused Diphenhydramine HCl (Diphenhydramine Inj 50 Mg/Ml Vial) 50 mg IV X1 STA Stop: 08/13/24 22:56 Last Admin: 08/13/24 23:13 Dose: 50 mg Documented By: ABEBE Haloperidol Lactate (Haloperidol Lact Inj 5 Mg/Ml Vial) 5 mg IV X1 ONE Stop: 08/13/24 22:56 Last Admin: 08/13/24 23:13 Dose: 5 mg Documented By: ABEBE Lorazepam (Lorazepam 2 Mg/Ml Vial) 2 mg IM X1 ONE Stop: 08/13/24 13:17 Last Admin: 08/13/24 13:34 Dose: 2 mg Documented By: CURRY Lorazepam (Lorazepam 2 Mg/Ml Vial) Confirm Administered Dose 2 mg .ROUTE .STK-MED ONE Stop: 08/13/24 13:28 Last Admin: 08/13/24 13:34 Dose: Not Given Documented By: CURRY Non-Admin Reason: Duplicate Medication on eMAR Lorazepam (Lorazepam 2 Mg/Ml Vial) 1 mg IVP X1 ONE Stop: 08/13/24 22:56 Last Admin: 08/13/24 23:14 Dose: 1 mg Documented By: ABEBE See above if any Consultations Consultation(s) initiated? (list below): No Diagnosis Psych Differential Diagnosis: acute psychosis, chronic schizophrenia, depression and drug-induced psychotic disorder Most likely diagnosis given after review of the tests above:: Schizophrenia Methamphetamine abuse Admission Indicated Admission indicated?: not indicated Admission Request Was there a request for admission?: No Disposition Plan Disposition Plan: other (specify) (1800: Patient signed out to Dr. Carbajal pending [facility] facility placement. ) Discharge Plan Prescriptions/Referrals Prescriptions/Med Rec: No Action albuterol sulfate 90 mcg/actuation HFA aerosol inhaler 2 puff INH Q6H PRN (Reason: shortness of breath or wheezing) fluoxetine 40 mg capsule 40 mg PO QDAY risperidone 2 mg tablet 2 mg PO BID trazodone 50 mg tablet 50 mg PO QHS PRN risperidone [Risperdal] 1 mg tablet 1 mg PO QDAY Qty: 14 0RF fluoxetine 40 mg capsule 40 mg PO QAM Qty: 7 0RF trazodone 50 mg tablet 50 mg PO QDAY Qty: 7 0RF risperidone [Risperdal] 1 mg tablet 1 mg PO QDAY Qty: 7 0RF prednisone 50 mg tablet 50 mg PO QDAY Qty: 5 0RF azithromycin 250 mg tablet See Rx Instructions PO .COMPLEX Qty: 6 0RF Rx Instructions: For 250 mg dose pack: take 500 mg today (day 1), then 250 mg for 4 days (days 2-5) fluticasone propionate [Flonase Allergy Relief] 50 mcg/actuation spray,suspension 1 spray intranasal Q12H PRN (Reason: nasal congestion) Qty: 16 0RF Rx Instructions: administer into each nostril Referrals: No Primary/Family,Physician [Primary Care Provider] - In 1 week Problem List Clinical Impression: Schizophrenia, Methamphetamine abuse Patient/Caregiver Discharge Instructions Print Language: Bermudian
[2024-08-13 13:25] LABS: Alcohol, Urine Negative (Negative); Amphetamine/Methamp Scrn,U Positive (Negative); Barbiturate Screen,Urine Negative (Negative); Benzodiazepines Screen,Urine Negative (Negative); Benzoylecgonine Screen, Ur Negative (Negative); Fentanyl Screen,Urine Negative (Negative); Opiate Screen,Urine Negative (Negative); THC Screen,Urine Negative (Negative)
[2024-08-13] MEDS: LORazepam 2 MG/ML VIAL IM (13:34)
[2024-08-13 16:20] VITALS: BP 98/61; PULSE 93; RESP 16; TEMP 37; O2SAT 99
--- NOTE | 2024-08-13 17:04 | PC.CC ---
Patient is a 38 year-old female BIBA from [facility] on a 5150-Hold for Gravely Disabled by Clinician, Nhung Singh. ASW made contact with [facility] who reported patient was d/c due to non-compliance in April 2024. However, the patient was re-referred and had an intake assessment for today at 1330 and was a no show as she is present at the hospital. ASWCristina made [id number] contact with patient, but patient would not engage in assessment and reported she had antibodies in her body. ASW will reattempt to assess patient in the morning. ASW to remain available.
[2024-08-13 18:54] VITALS: BP 118/80; PULSE 98; RESP 17; TEMP 37.2; O2SAT 98
--- NOTE | 2024-08-13 19:27 | PC.NURSE ---
report received. Pt laying down in rm. 1 to 1 sitter direct observation.
--- NOTE | 2024-08-13 22:45 | PD.EDADDENDU ---
Emergency Room Addendum <Yun Mcpherson - Last Filed: 08/13/24 23:26> Addendum Narrative: I took over the care from Dr. Galeano at 6 PM on 08/13/2024, see his notes for complete H&P and ED course. 2244: Code xavier called overhead due to the patient being aggressive. Patient placed in 4-point restraints. Haldol, Benadryl, and Ativan ordered. <Melvin Carbajal MD - Last Filed: 08/14/24 04:48> Addendum Narrative: I took over the care from Dr. Galeano at 6 PM on 08/13/2024, see his notes for complete H&P and ED course. 2244: Code duc called overhead due to the patient being aggressive. Patient placed in 4-point restraints. Haldol, Benadryl, and Ativan ordered. Significant improvement noted. Otherwise, the patient remained stable. At 6 AM on 08/14/24, the care of the patient was transferred to Dr Galeano. Melvin Carbajal MD
[2024-08-13] MEDS: HALOPERIDOL LACT INJ 5 MG/ML VIAL IV (23:13)
[2024-08-13] MEDS: DiphenhydrAMINE INJ 50 MG/ML VIAL IV (23:13)
[2024-08-13] MEDS: LORazepam 2 MG/ML VIAL 1 MG IVP (23:14)
[2024-08-13 23:29] VITALS: BP 102/62; PULSE 83; RESP 20; O2SAT 95
--- NOTE | 2024-08-13 23:49 | PC.NURSE ---
2244 pt was taken to bathroom. when she was taken to she began yelling and screaming.She exopressing that she wants to go have a smoke, wanted to go home. pt then started to hit montero, throwing whatever she could get her hands on. Pt was jumping around in , banging on glass door. thee Mcdaniel was called and pt was placed in 2point restraints but then began to flale on bed kicking her leg up in the air and kicking bed rails. pt then was placed in 4 point restraints. Dennis Carbajal evaluated pt and ordered IV and IV meds.
[2024-08-14 00:42] LABS: Basophils % (Auto) 0 % (0-2.5); Eosinophils # (Auto) 0.1 Thou/mm3 (0.0-0.5); Eosinophils % (Auto) 1 % (0-10); Hematocrit 39.5 % (36.0-46.0); Hemoglobin 13.3 g/dL (12.0-16.0); Immature Granulocytes % (Auto) 0 % (0-0); Immature Granulocytes Auto 0.03 Thou/mm3 (0.00-0.00); Lymphocytes # (Auto) 2.9 Thou/mm3 (1.0-4.8); Lymphocytes % (Auto) 26 % (10-50); Mean Corpuscular HGB Conc 33.7 g/dl (31.0-37.0); Mean Corpuscular Hemoglobin 29.6 pg (25.0-35.0); Mean Corpuscular Volume 88 fL (80-100); Monocytes # (Auto) 1.1 Thou/mm3 (0.0-0.8); Monocytes % (Auto) 10 % (0-12); Neutrophils # (Auto) 7.3 Thou/mm3 (1.8-7.7); Neutrophils % (Auto) 63 % (37-80); Nucleated Red Blood Cell % 0 /100 WBC (0); Platelet Count 372 Thou/mm3 (140-440); RDW Standard Deviation 42.2 fL (36.4-46.3); Red Blood Count 4.49 Miln/mm3 (4.00-5.20); White Blood Count 11.5 Thou/mm3 (3.6-11.0)
[2024-08-14 00:51] LABS: Acetaminophen < 2.0 mcg/mL (10.0-20.0); Alanine Aminotransferase 21 U/L (10-49); Albumin, Serum 4.2 gm/dL (3.5-5.0); Albumin/Globulin Ratio 1.3 (1.2-2.2); Alkaline Phosphatase 106 U/L (46-116); Anion Gap 10 (7-16); Aspartate Amino Transferase 31 U/L (0-34); BUN/Creatinine Ratio 26 Ratio (12-20); Bilirubin,Total 0.8 mg/dL (0.3-1.2); Blood Urea Nitrogen 21 mg/dL (9-23); Calcium 9.6 mg/dL (8.3-10.6); Calcium (Corrected) 9.6 mg/dL (8.5-10.1); Carbon Dioxide 26.7 mMol/L (20.0-31.0); Chloride 104 mMol/L (98-107); Creatinine (Component) 0.8 mg/dL (0.6-1.3); Free T4 (Free Thyroxine) 1.37 ng/dL (0.89-1.76); Globulin 3.3 gm/dL (2.3-3.5); Glucose 91 mg/dL (74-106); Magnesium 2.2 mg/dL (1.6-2.6); Osmolality,Calculated 284 (275-295); Potassium 4.5 mMol/L (3.4-5.1); Salicylate < 3.0 mg/dL; Sodium 141 mMol/L (136-145); Thyroid Stimulating Hormone 1.71 uIU/mL (0.55-4.78); Total Protein 7.5 gm/dL (5.7-8.2); eGFR > 60 See Note
[2024-08-14 02:00] VITALS: PULSE 88; RESP 18; O2SAT 97
--- NOTE | 2024-08-14 02:00 | PC.NURSE ---
pt still sleeping. pt on wet cotton feeder. NSR VS stable
--- NOTE | 2024-08-14 03:04 | PC.NURSE ---
pt placed on media monitor just after meds given.
[2024-08-14 04:00] VITALS: PULSE 81; RESP 18; O2SAT 98
--- NOTE | 2024-08-14 04:00 | PC.NURSE ---
still sleeping. On monitoring manager NSR
--- NOTE | 2024-08-14 06:26 | PC.NURSE ---
Pt has been sleeping since meds given. remains on campus monitor
[2024-08-14 06:31] VITALS: BP 103/57; PULSE 81; RESP 16; O2SAT 96
--- NOTE | 2024-08-14 06:50 | EDNOTE_ITS ---
Emergency Room Addendum Addendum Narrative: 0600: Care assumed from Dr. Galeano, the previous shift emergency physician. Past medical, surgical, social and family history reviewed. Vitals and home medications reviewed. I will assume the care of the patient at this time, pending LPS facility placement. Please refer to the emergency department record for history and examination from initial visit.?The following addendum documentation note is intended to reflect any pending information, findings, or radiology results not included in the patient?s initial chart. 0810: Patient has been reevaluated by our ASW and has rescinded the 5150 hold. Patient has a follow up appointment at [facility] on 08/20/2024 at 1pm. Patient also provided with additional clothing. Patient was discharged in stable condition.
[2024-08-14 08:07] VITALS: BP 99/64; PULSE 83; RESP 18; TEMP 37; O2SAT 98
--- NOTE | 2024-08-14 08:15 | PC.NURSE ---
PT TO BE DISHARGED W/SAFETY PLAN
--- NOTE | 2024-08-14 08:19 | PC.CC ---
Patient is a 38 year-old female BIBA from [facility] on a 5150-Hold for Gravely Disabled by Clinician, Nhung Singh. ASWCristina made [id number] contact with patient. ASW introduced self, role, and reason for visit.?Patient appeared alert and oriented to self, location, and situation.?ASW disclosed limits of confidentiality as well. Patient appeared alert and oriented to self, place, and situation. Patient?s mood appeared to be euthymic; she was cooperative; made appropriate eye contact; patient had good insight and judgement. Patient?s thought process was linear and organized. No signs of delusions, paranoid or V/h. ASW explored with patient events that led her being taken into custody and subsequently being placed on a 5150-hold. Patient reports she does not recall the events as she was under the influence of methamphetamines and had not slept for approximately a week prior to sleeping while at the hospital. Patient reports she has a history of depression but is not connected to outpatient mental health services. At the time of encounter the patient denied suicidal and homicidal ideations, visual and auditory hallucinations. Patient denied past suicide attempts and reports she has not been placed on a 5150-hold in the past. ASW explored with patient if she would like to be connected to outpatient mental health services in which patient responded, ?I would appreciate that.? Per patient, she recently became homeless and has been using methamphetamines off and on. Patient reports that if she is discharged today [facility]. Patient was low-risk on the [place] Suicide Screening. Upon clinical consultation with Lyudmila CHADWICK the patient?s 5150-hold will be rescinded with resources and outpatient mental health appointment. ASW provided patient with weather appropriate clothing and shoes, bus pass, [facility] Community Resource Guide, WarmLine Number, AOD resources, and an appointment for outpatient mental health services with [facility] on August 20, 2024 at 1pm with Juan Cano. ASW provided discharge plan to Dr. Galeano, interactive video technician Lanise, and bedside LOTTIE Cohen.
== END 2024-08-14 08:20 | disposition home or self-care (01) ==
PROVIDERS: Emergency Medicine; Emergency Provider Emergency Medicine
DX: F20.9 Schizophrenia, unspecified (principal); F15.10 Other stimulant abuse, uncomplicated; F10.129 Alcohol abuse with intoxication, unspecified; F32.A Depression, unspecified; I10 Essential (primary) hypertension; Y90.9 Presence of alcohol in blood, level not specified
CPT/HCPCS: 36415; 80053; 80307; 80320; 80329; 81025; 83735; 84439; 84443; 85025; 90839; 96127; 96372; 96374; 99285; J1200; J1630; J2060; G0480

== ENCOUNTER 2024-09-09 21:12 | Emergency (ER) | payer MEDICAID, SELFPAY ==
--- NOTE | 2024-09-09 21:17 | PD.EDPSYCH ---
ED Psych RME/HPI General Chief Complaint: Psychiatric Symptoms Stated Complaint: 5150 Arrival date/time: 09/09/24 21:12 RME / HPI RME / HPI Narrative: This section includes all my notes and documentations, including HPI, PE, and ED course. Melvin Carbajal MD HPI: 38 y/o female with Hx of Methamphetamine use, Schizophrenia and Depression MICHAEL from residential presents to ED for further evaluation. Patient was picked up wandering the streets with obvious break from reality. With increased risk to harm herself and possibly others. Patient was placed on a hold by the residential. Denies SI/HI currently by patient. Denies hallucinations. Denies alcohol or drug use. Patient reports taking Risperdal but has not had it in 3 days. Difficult obtaining history from the patient. Due to obvious delusions and paranoia. Talked of being for 90 months and wanting to get the baby out. Talked of spiders and bugs eating her alive and requesting to kill them. No other obvious complaints. ROS: All negative except as documented in HPI. Physical Exam: General: Alert. Obvious psychosis noted. Eyes: Conjunctivae and lids clear. EOMI. PERRL. ENT: No nasal congestion. Neck: Supple. Heart: RRR. Lungs: No respiratory distress. Good air movement. No rhonchi, wheezing, rales. Abdomen: Soft and nontender. Skin: Warm and dry. Neuro: Alert and oriented X 2. Cranial Nerves II-XII grossly intact. No peripheral motor deficits. I reviewed EMS notes. I reviewed all diagnostic test results. Blood tests and urine tests remarkable for K 3.3 and UDS positive for methamphetamine. At this point, diagnoses include acute psychosis and methamphetamine use. Treatment here included oral KCl 40 mEq, nicotine patch, oral risperidone 2 mg, and Xanax 1.5 mg. Patient is medically cleared for psychiatric evaluation. Ordered entered for evaluation by our ED director career. At 6 AM on 09/10/2024, the care of the patient was transferred to Dr. KWONG. Melvin Carbajal MD Related Data Home Medications ?Medication ?Instructions ?Recorded ?Confirmed albuterol sulfate 90 mcg/actuation 2 puff inhalation Q6H PRN 08/20/18 aerosol inhaler shortness of breath or wheezing fluoxetine 40 mg capsule 40 mg PO QDAY 08/20/18 risperidone 2 mg tablet 2 mg PO BID 08/20/18 trazodone 50 mg tablet 50 mg PO QHS PRN 08/20/18 Previous Rx's ?Medication ?Instructions ?Recorded risperidone 1 mg tablet (Risperdal) 1 mg PO QDAY #14 tabs 07/25/23 fluoxetine 40 mg capsule 40 mg PO QAM #7 caps 10/19/23 risperidone 1 mg tablet (Risperdal) 1 mg PO QDAY #7 tabs 10/19/23 trazodone 50 mg tablet 50 mg PO QDAY #7 tabs 10/19/23 fluticasone propionate 50 1 spray intranasal Q12H PRN nasal 11/19/23 mcg/actuation nasal congestion #16 grams spray,suspension (Flonase Allergy Relief) prednisone 50 mg tablet 50 mg PO QDAY #5 tabs 03/02/24 azithromycin 250 mg tablet See Rx Instructions PO .COMPLEX #6 03/05/24 tabs Allergies Allergy/AdvReac Type Severity Reaction Status Date / Time No Known Allergies Allergy Verified 03/18/24 08:47 Review of Systems Review of Systems Systems Reviewed: All systems reviewed, normal except as documented Past Medical History Past Medical History CARDIAC: Positive Hypertension PSYCHO/SOCIAL: Positive Psychiatric Problems, Schizophrenia and Depression Social History SUBSTANCE USE: methamphetamine ED Exam Narrative Physical exam: Refer to HPI above Course Quality Measures none Orders Category Date Time Status Referral Psych Eval Stat Cons 09/10/24 03:25 Active Acetaminophen Stat Lab 09/09/24 21:38 Completed Alcohol, Blood Medical Stat Lab 09/09/24 21:38 Completed CBC Stat Lab 09/09/24 21:38 Completed CMP [Comprehensive Metabolic Panel] Stat Lab 09/09/24 21:38 Completed Drug Screen,Urine Stat Lab 09/09/24 21:35 Completed HCG Qualitative,Urine Stat Lab 09/09/24 21:35 Completed HCG,Qualitative Serum Stat Lab 09/09/24 21:38 Completed Magnesium Stat Lab 09/09/24 21:38 Completed Salicylate Stat Lab 09/09/24 21:38 Completed UA, C/S IF [Urinalysis, C/S if Indicated] Stat Lab 09/09/24 21:35 Completed ALPRazoLAM [Xanax] Med 09/10/24 03:29 Discontinued 1.5 mg PO X1 ONE KCL 10% Liq UDC 15 ML Med 09/10/24 03:24 Discontinued 40 meq PO X1 ONE Nicotine Patch [Nicoderm Patch] Med 09/10/24 01:35 Discontinued 14 mg TOP X1 ONE Potassium Chloride [K-Dur] Med 09/10/24 03:32 Discontinued 40 meq PO X1 ONE risperiDONE [RisperDAL] Med 09/10/24 01:36 Discontinued 2 mg PO X1 ONE Vital Signs Vital signs: Vital Signs Temperature 98.0 F 09/09/24 21:18 Pulse Rate 88 09/09/24 21:18 Respiratory Rate 16 09/09/24 21:18 Blood Pressure 145/73 H 09/09/24 21:18 Pulse Oximetry (%) 100 09/09/24 21:18 Oxygen Delivery Method Room Air 09/09/24 21:18 Psych MDM Narrative MDM Narrative:: Scribe Attestation: I, Leatha Hill, am scribing for and in the presence of Dr. Carbajal. Provider Notation: Although this document has been carefully reviewed, there may still be some phonetic and other typographical errors.? These errors are purely grammatical due to imperfections in the software program and should not be construed in any way to? compromise the substance of the patient's medical care during this visit. 38 y/o female with Hx of Methamphetamine use, Schizophrenia and Depression BIBA from residential presents to ED due to inability to verbalize and articulate a safety plan. Patient was placed on a hold by the residential. Denies SI/HI or any hallucinations. Denies alcohol or drug use. Patient takes Risperdal but has not had it in 3 days. Patient has no complaints. Patient data External records reviewed:: [facility] previous records (Prior ED records reviewed from 08/14/24. Patient was seen for Methamphetamine abuse.) and EMS form Clinical information provided by:: patient and EMS Social determinants that could affect healthcare access:: mental health (Schizophrenia, Depression) Patient has the following chronic illnesses:: HTN, Schizophrenia, Depression How is presenting disease/condition affected by chronic disease/condition?: exacerbated by Evaluation data The following diagnostics were reviewed and interpreted by me:: lab results Lab and/or radiology exams considered but not ordered:: None Interpretation Summary: I reviewed all diagnostic test results. Blood tests and urine tests remarkable for K 3.3 and UDS positive for methamphetamine. Medications / Prescriptions Medications or Prescriptions considered but not ordered:: None Medication administrations:: Medication Administration History Discontinued Medications Alprazolam (Alprazolam 0.25 Mg Tablet) 1.5 mg PO X1 ONE Stop: 09/10/24 03:30 Last Admin: 09/10/24 03:39 Dose: 1.5 mg Documented By: DT Nicotine (Nicotine Patch 14 Mg/24 Hr Patch.Td24) 14 mg TOP X1 ONE Stop: 09/10/24 01:36 Last Admin: 09/10/24 02:29 Dose: 14 mg Documented By: DT Potassium Chloride (Potassium Chloride 10% 20 Meq/15 Ml Udc) 40 meq PO X1 ONE Stop: 09/10/24 03:25 Last Admin: 09/10/24 03:42 Dose: Not Given Documented By: DT Non-Admin Reason: Cancelled by Provider Potassium Chloride (Potassium Chloride 20 Meq Tabcr) 40 meq PO X1 ONE Stop: 09/10/24 03:33 Last Admin: 09/10/24 03:40 Dose: 40 meq Documented By: DT Risperidone (Risperidone 1 Mg Tablet) 2 mg PO X1 ONE Stop: 09/10/24 01:37 Last Admin: 09/10/24 02:29 Dose: 2 mg Documented By: DT Treatment here included oral KCl 40 mEq, nicotine patch, oral risperidone 2 mg, and Xanax 1.5 mg. Consultations Consultation(s) initiated? (list below): No Diagnosis Psych Differential Diagnosis: acute psychosis, chronic schizophrenia, suicidal ideation, bipolar disorder, depression, drug-induced psychotic disorder and acute anxiety Most likely diagnosis given after review of the tests above:: Acute psychosis and methamphetamine use. Admission Indicated Admission indicated?: not indicated Explain why admission is indicated or not indicated:: Patient is medically cleared for psychiatric evaluation. Ordered entered for evaluation by our ED director career. At 6 AM on 09/10/2024, the care of the patient was transferred to Dr. KWONG. Admission Request Was there a request for admission?: No Disposition Plan Disposition Plan: other (specify) (Care of the patient transferred to Dr. KWONG.) Discharge Plan Prescriptions/Referrals Prescriptions/Med Rec: No Action albuterol sulfate 90 mcg/actuation HFA aerosol inhaler 2 puff INH Q6H PRN (Reason: shortness of breath or wheezing) fluoxetine 40 mg capsule 40 mg PO QDAY risperidone 2 mg tablet 2 mg PO BID trazodone 50 mg tablet 50 mg PO QHS PRN risperidone [Risperdal] 1 mg tablet 1 mg PO QDAY Qty: 14 0RF fluoxetine 40 mg capsule 40 mg PO QAM Qty: 7 0RF trazodone 50 mg tablet 50 mg PO QDAY Qty: 7 0RF risperidone [Risperdal] 1 mg tablet 1 mg PO QDAY Qty: 7 0RF prednisone 50 mg tablet 50 mg PO QDAY Qty: 5 0RF azithromycin 250 mg tablet See Rx Instructions PO .COMPLEX Qty: 6 0RF Rx Instructions: For 250 mg dose pack: take 500 mg today (day 1), then 250 mg for 4 days (days 2-5) fluticasone propionate [Flonase Allergy Relief] 50 mcg/actuation spray,suspension 1 spray intranasal Q12H PRN (Reason: nasal congestion) Qty: 16 0RF Rx Instructions: administer into each nostril Referrals: No Primary/Family,Physician [Primary Care Provider] - In 1 week Problem List Clinical Impression: Acute psychosis, Methamphetamine use Patient/Caregiver Discharge Instructions Print Language: Vietnamese
[2024-09-09 21:18] VITALS: BP 145/73; PULSE 88; RESP 16; TEMP 36.7; O2SAT 100; BMI 16.5
[2024-09-09 21:35] VITALS: PULSE 87; RESP 14; O2SAT 97; BMI 19.1
--- NOTE | 2024-09-09 22:00 | PC.NURSE ---
Patient ambulating with a strong and steady gait. Pt eating a pudding and juice box.
[2024-09-09 22:11] LABS: Collection Type, Urine Clean Catch
[2024-09-09 22:26] LABS: Basophils # (Auto) 0.1 Thou/mm3 (0.0-0.2); Basophils % (Auto) 1 % (0-2.5); Eosinophils # (Auto) 0.1 Thou/mm3 (0.0-0.5); Eosinophils % (Auto) 1 % (0-10); Hematocrit 39.4 % (36.0-46.0); Hemoglobin 13.6 g/dL (12.0-16.0); Immature Granulocytes % (Auto) 0 % (0-0); Immature Granulocytes Auto 0.02 Thou/mm3 (0.00-0.00); Lymphocytes # (Auto) 2.2 Thou/mm3 (1.0-4.8); Lymphocytes % (Auto) 25 % (10-50); Mean Corpuscular HGB Conc 34.5 g/dl (31.0-37.0); Mean Corpuscular Hemoglobin 29.6 pg (25.0-35.0); Mean Corpuscular Volume 86 fL (80-100); Monocytes # (Auto) 0.6 Thou/mm3 (0.0-0.8); Monocytes % (Auto) 7 % (0-12); Neutrophils % (Auto) 67 % (37-80); Nucleated Red Blood Cell % 0 /100 WBC (0); Platelet Count 312 Thou/mm3 (140-440); RDW Standard Deviation 39.8 fL (36.4-46.3); White Blood Count 8.9 Thou/mm3 (3.6-11.0)
[2024-09-09 22:34] LABS: HCG,Qualitative Serum Negative
[2024-09-09 22:39] LABS: Bilirubin,Urine Negative (Negative); Blood,Urine Negative (Negative); Clarity,Urine Clear (Clear/Hazy); Color,Urine Yellow (Lt Yel-Yel); Culture Indicated,Urine Not Indicated; Glucose, Urine Negative (Negative); Ketones,Urine Trace (Negative); Leukocyte Esterase,Urine Negative (Negative); Nitrite,Urine Negative (Negative); PH,Urine 6.5 (5.0-7.0); Protein,Urine Trace (Neg - Trace); RBC,Urine 5 /hpf (0-3); Specific Gravity,Urine 1.023 (1.001-1.035); Squamous Epithelial Cell,Urine 1 /hpf (0-5); Urobilinogen,Urine Negative mg/dL (0.0-1.0); WBC,Urine 2 /hpf (0-5)
[2024-09-09 22:44] LABS: Acetaminophen < 2.0 mcg/mL (10.0-20.0); Alanine Aminotransferase 43 U/L (10-49); Albumin, Serum 4.4 gm/dL (3.5-5.0); Albumin/Globulin Ratio 1.5 (1.2-2.2); Alcohol, Blood Medical < 3.0 mg/dL (0-10.0); Alkaline Phosphatase 90 U/L (46-116); Anion Gap 8 (7-16); Aspartate Amino Transferase 56 U/L (0-34); BUN/Creatinine Ratio 16 Ratio (12-20); Bilirubin,Total 1.1 mg/dL (0.3-1.2); Blood Urea Nitrogen 14 mg/dL (9-23); Calcium 9.3 mg/dL (8.3-10.6); Calcium (Corrected) 9.3 mg/dL (8.5-10.1); Carbon Dioxide 32.6 mMol/L (20.0-31.0); Chloride 100 mMol/L (98-107); Creatinine (Component) 0.9 mg/dL (0.6-1.3); Estimated Creatinine Clearance 68.4 mL/min (>60); Glucose 109 mg/dL (74-106); Magnesium 2.2 mg/dL (1.6-2.6); Osmolality,Calculated 282 (275-295); Potassium 3.3 mMol/L (3.4-5.1); Salicylate < 3.0 mg/dL; Sodium 141 mMol/L (136-145); Total Protein 7.4 gm/dL (5.7-8.2); eGFR > 60 See Note
[2024-09-09 22:50] LABS: Amphetamine/Methamp Scrn,U Positive (Negative); Barbiturate Screen,Urine Negative (Negative); Benzodiazepines Screen,Urine Negative (Negative); Benzoylecgonine Screen, Ur Negative (Negative); Fentanyl Screen,Urine Negative (Negative); Opiate Screen,Urine Negative (Negative); THC Screen,Urine Negative (Negative)
[2024-09-09 22:54] LABS: HCG Qualitative,Urine Negative
[2024-09-10] MEDS: NICOTINE PATCH 14 MG/24 HR PATCH.TD24 TOP (02:29)
[2024-09-10] MEDS: risperiDONE 1 MG TABLET 2 MG PO (02:29)
[2024-09-10 02:36] VITALS: BP 119/80; PULSE 66; RESP 16; TEMP 37; O2SAT 95
[2024-09-10] MEDS: ALPRazoLAM 0.25 MG TABLET 1.5 MG PO (03:39)
[2024-09-10] MEDS: POTASSIUM CHLORIDE 20 mEq TABCR 40 MEQ PO (03:40)
--- NOTE | 2024-09-10 06:30 | PD.EDADDENDU ---
Emergency Room Addendum Addendum Narrative: 0600: Care assumed from Dr. Carbajal (emergency physician). Past medical, surgical, social and family history reviewed. Vitals and home medications reviewed. Results and treatment plan discussed. I will assume the care of the patient at this time and will follow the patient, pending mentaL health evaluation. The patient was placed in ED observation care at 09/10/2024 at 0600 hours. The patient was placed in ED observation care because of pending mental health evaluation or undifferentiated decompensated behavioral health evaluation, no behavioral health bed available. The patients past medical history, social history, and family history were reviewed. The plan of care will include serial examinations. While in ED observation the patient will have access to water, food, and personal hygiene. If the patient takes home medication(s), they will be continued in ED observation. 1005: family preservation worker has evaluated patient and upheld the 5150 hold. Patient is pending placement. 1055: Dr. Cueva accepted patient for placement at [facility]. Observation ended at 09/10/2024 at 1244 hours, EMS is here to transport patient.
[2024-09-10 07:00] VITALS: BP 116/75; PULSE 77; RESP 17; TEMP 37; O2SAT 100
--- NOTE | 2024-09-10 08:10 | PC.NURSE ---
PT REFUSING FOOD AND DRINK
[2024-09-10 09:00] VITALS: BP 114/73; PULSE 80; RESP 18; O2SAT 96
--- NOTE | 2024-09-10 09:25 | PC.CC ---
Patient is a 38 year-old female who presents to the hospital on 5150-hold by [facility] Dr. Fernando for Danger to Others and Gravely Disabled. It was reported on the hold that patient is presenting with erratic behavior and agitated. ASW, Cristina made face to face contact with patient introduced self, role, and reason for visit. Patient would not engage with this business writer and remained underneath the sheet. Patient stated, I am cold. ASW continued to attempt to get patient to engage and patient would not engage. Upon clinical consultation with FRONT OFFICE SUPERVISORLyudmila patient's 5150-Hold will be upheld. ASW attempted to provide advisement to patient but patient would not engage. ASW provided update of discharge plan to [facility] to Dr. Sanchez, assistant media buyer Estefania, and bedside RN Jerry. ASW to send referral to [facility].
--- NOTE | 2024-09-10 11:06 | PC.CC ---
Patient was accepted to [facility], Giorgi provided accepting information. Psychiatrist, Anay into [facility]. Cristina ESTEVEZ attempted to provide accepting information to patient. Patient would not engage. ASW provided update to Dr. Sanchez, grain inspector Estefania, and bedside RN Jerry. ASW arranged transportation with [facility] for 1310.
[2024-09-10 12:00] VITALS: BP 129/88; PULSE 70; RESP 17; O2SAT 98
--- NOTE | 2024-09-10 12:09 | PC.NURSE ---
CALLED [facility] AND SPOKE TO TREY TAFOYA TO WHOM I GAVE FULL REPORT.
[2024-09-10 13:00] VITALS: BP 129/70; PULSE 70; RESP 17; TEMP 36.7; O2SAT 98
== END 2024-09-10 13:00 ==
PROVIDERS: Emergency Provider Emergency Medicine
DX: F20.9 Schizophrenia, unspecified (principal); F15.90 Other stimulant use, unspecified, uncomplicated; F32.A Depression, unspecified
CPT/HCPCS: 36415; 80053; 80307; 80320; 80329; 81001; 81025; 83735; 84703; 85025; 90839; 96127; 99285; A9270; G0480